=== PATIENT | male | born 1990 | race Caucasian/White ===

== ENCOUNTER 2020-06-01 19:40 | Emergency (ER) | payer MEDICAID ==
[~2020-06-01] VITALS: Ht 185.4 cm; Wt 131.8 kg
[2020-06-01] MEDS ORDERED: KETOROLAC 60MG/2ML VIAL IM STA (21:01)
[2020-06-01] MEDS ORDERED: PENICILLIN G BENZATHINE 1,200,000 UNITS/2ML SYR IM ONE (21:15)
[2020-06-01] MEDS ORDERED: DEXAMETHASONE 10 MG/ML VIAL IM ONE (21:15)
[2020-06-01] MEDS ORDERED: KETOROLAC 30MG/ML VIAL IV STA (21:35)
[2020-06-01] MEDS ORDERED: AMPICILLIN SOD/SULBACTAM NA 1.5 G in SODIUM CHLORIDE 0.9% 50 ML IV SCH (21:45)
[2020-06-01] MEDS ORDERED: DEXAMETHASONE 10 MG/ML VIAL IV ONE (21:45)
[2020-06-02 01:17] VITALS: BP 124/70
== END 2020-06-02 01:17 | disposition home or self-care (01) ==
LOC: ER 19:40
DX: J36 Peritonsillar abscess (principal)
CPT/HCPCS: 96365; 96372; 99284; J0295; J0561; J1100; J1885

== ENCOUNTER 2020-07-10 13:14 | Emergency (ER) | payer BC, MEDICAID ==
[~2020-07-10] VITALS: Ht 185.4 cm; Wt 132.0 kg
[2020-07-10 13:39] VITALS: BP 136/69
[2020-07-10] MEDS ORDERED: LOPERAMIDE HCL 2MG CAPSULE PO ONE (14:00)
[2020-07-10 15:07] LABS: BASOPHILS % 0.3 % (0.0-2.0); HEMATOCRIT. 45.6 % (42.0-52.0); HEMOGLOBIN. 15.9 g/dL (14.0-18.0); LYMPHOCYTES % 34.5 % (20.0-50.0); MEAN CORPUSCULAR HEMOGLOBIN 29.9 pg (28.0-32.0); MEAN CORPUSCULAR VOLUME 85.7 fL (80.0-94.0); MEAN PLATELET VOLUME 9.2 fl (7.4-10.4); MONOCYTES % 6.6 % (2.0-8.0); NEUTROPHILS % 56.6 % (40.0-76.0); PLATELET 203 x1000/uL (130-400); RED BLOOD CELL COUNT 5.32 mill/uL (4.7-6.1); RED CELL DISTRIBUTION WIDTH 13.6 % (11.6-14.6)
[2020-07-10 15:12] LABS: CHLORIDE 105 mEq/L (98-107)
== END 2020-07-10 15:53 | disposition home or self-care (01) ==
LOC: ER 13:40
DX: R10.84 Generalized abdominal pain (principal); R19.7 Diarrhea, unspecified
CPT/HCPCS: 36415; 80053; 85025; 93005; 99284

== ENCOUNTER 2020-09-30 08:46 | Emergency (ER) | payer BC, MEDICAID ==
[~2020-09-30] VITALS: Ht 182.9 cm; Wt 127.0 kg
[2020-09-30 08:50] VITALS: BP 145/90
[2020-09-30] MEDS ORDERED: MAGNESIUM/ALUMINUM HYDROXIDE/SIMETHICONE 30ML UDC PO STA (09:02)
[2020-09-30] MEDS ORDERED: VISCOUS LIDOCAINE 2% 15 ML UDC PO STA (09:02)
== END 2020-09-30 12:36 | disposition left against medical advice (07) ==
LOC: ER 09:10
DX: K29.70 Gastritis, unspecified, without bleeding (principal)
CPT/HCPCS: 93005; 99283

== ENCOUNTER 2025-03-29 22:20 | Emergency (ER) | payer BC, MEDICAID ==
[~2025-03-29] VITALS: Ht 185.4 cm; Wt 145.0 kg
[2025-03-29 22:29] VITALS: TEMP 36.8; O2SAT 100
[2025-03-29] MEDS: FAMOTIDINE 20MG TABLET PO ONE (23:32)
[2025-03-29 23:47] LABS: BASOPHILS % 0.4 % (0.0-2.0); EOSINOPHILS % 0.5 % (0.0-5.0); HEMATOCRIT. 47.7 % (42.0-52.0); HEMOGLOBIN. 16.6 g/dL (14.0-18.0); LYMPHOCYTES % 18.2 % (20.0-50.0); MEAN CORPUSCULAR HGB CONC 34.8 g/dL (31.0-37.0); MEAN CORPUSCULAR VOLUME 83.5 fL (80.0-94.0); MEAN PLATELET VOLUME 8.9 fl (7.4-10.4); MONOCYTES % 7.4 % (2.0-8.0); NEUTROPHILS % 73.5 % (40.0-76.0); PLATELET 236 x1000/uL (130-400); RED BLOOD CELL COUNT 5.71 mill/uL (4.7-6.1); WHITE BLOOD COUNT 10.4 x1000/uL (4.5-11.0)
[2025-03-30 00:03] LABS: CHLORIDE 101 mEq/L (98-107); POTASSIUM 3.6 mEq/L (3.5-5.1); SODIUM 140 mEq/L (136-145)
[2025-03-30 00:04] LABS: CARBON DIOXIDE 28 mEq/L (21-32)
[2025-03-30 00:05] LABS: CALCIUM 10.1 mg/dL (8.7-10.4)
[2025-03-30 00:09] LABS: CREATININE 0.9 mg/dL (0.6-1.3); GLUCOSE 129 mg/dL (70-105)
[2025-03-30 00:10] LABS: UREA NITROGEN BLOOD 8 mg/dL (9-23)
[2025-03-30 00:11] LABS: ALANINE AMINOTRANSFERASE 23 IU/L (10-49); ALBUMIN 4.7 g/dL (3.2-4.8); ASPARTATE AMINOTRANSFERASE 15 IU/L (<34)
[2025-03-30 00:12] LABS: BILIRUBIN TOTAL 0.7 mg/dL (0.1-1.0); PROTEIN TOTAL 7.8 g/dL (6.0-8.3)
[2025-03-30] MEDS ORDERED: FAMO-135 MT (00:20)
[2025-03-30 00:41] VITALS: BP 148/92; PULSE 90; RESP 18; O2SAT 97
== END 2025-03-30 00:42 | disposition home or self-care (01) ==
LOC: ER 22:20
DX: K80.70 Calculus of gallbladder and bile duct without cholecystitis without obstruction (principal)
CPT/HCPCS: 36415; 76705; 80053; 85025; 99284

== ENCOUNTER 2025-06-17 19:52 | Emergency (ER) | payer SELFPAY ==
[~2025-06-17] VITALS: Ht 185.4 cm; Wt 139.2 kg
[~2025-06-17 19:52] MED LIST: FAMO-135 MT
[2025-06-17 20:00] VITALS: O2SAT 100
[2025-06-17 21:07] LABS: BASOPHILS % 0.2 % (0.0-2.0); EOSINOPHILS % 0.2 % (0.0-5.0); HEMATOCRIT. 45.3 % (42.0-52.0); HEMOGLOBIN. 14.9 g/dL (14.0-18.0); LYMPHOCYTES % 18.9 % (20.0-50.0); MEAN PLATELET VOLUME 8.8 fl (7.4-10.4); MONOCYTES % 8.8 % (2.0-8.0); NEUTROPHILS % 71.9 % (40.0-76.0); PLATELET 396 x1000/uL (130-400); RED BLOOD CELL COUNT 5.42 mill/uL (4.7-6.1); RED CELL DISTRIBUTION WIDTH 13.2 % (11.6-14.6)
[2025-06-17 21:21] LABS: CREATININE 1.0 mg/dL (0.6-1.3); UREA NITROGEN BLOOD 6 mg/dL (9-23)
[2025-06-17 21:38] LABS: ETHANOL BLOOD < 10 mg/dL (<10)
[2025-06-17 21:39] LABS: ASPARTATE AMINOTRANSFERASE 20 IU/L (<34); BILIRUBIN DIRECT 0.3 mg/dL (<=3.0); BILIRUBIN TOTAL 0.7 mg/dL (0.1-1.0); PROTEIN TOTAL 7.6 g/dL (6.0-8.3)
[2025-06-17 22:38] LABS: HEPATITIS C AB NON REACTIVE (Neg) (Negative)
[2025-06-17] MEDS: KETOROLAC 30MG/ML VIAL IV ONE (23:05)
[2025-06-17] MEDS: ONDANSETRON HCL 4MG/2ML INJ IV ONE (23:05)
[2025-06-17] MEDS: FAMOTIDINE 20MG/2ML VIAL IV ONE (23:06)
[2025-06-17] MEDS: SODIUM CHLORIDE 0.9% 1,000 ML IV ONE (23:07)
[2025-06-18] MEDS: IOHEXOL-300 100 ML BOTTLE ONE (02:16)
[2025-06-18] MEDS ORDERED: IBUP-2030 MT (03:38)
[2025-06-18] MEDS ORDERED: TRAM50TA3 MT (03:38)
[2025-06-18] MEDS ORDERED: AMOX1TAB16 MT (03:38)
[2025-06-18] MEDS ORDERED: ONDA-239 PO (03:38)
[2025-06-18] MEDS: MORPHINE SULFATE 4 MG/ML INJ (FOR IV/IM USE) IV NR (04:01)
[2025-06-18] MEDS: KETOROLAC 30MG/ML VIAL IV NR (04:01)
[2025-06-18] MEDS: AMOXICILLIN/POTASSIUM CLAVULANATE 875/125MG TAB PO NR (04:01)
[2025-06-18 04:10] VITALS: BP 118/67; PULSE 92; RESP 16; TEMP 37.1; O2SAT 100
== END 2025-06-18 04:10 | disposition home or self-care (01) ==
LOC: ER 19:52
DX: K80.10 Calculus of gallbladder with chronic cholecystitis without obstruction (principal); E66.01 Morbid (severe) obesity due to excess calories
CPT/HCPCS: 80076; 80048; 80320; 83690; 85025; 86706; 36415; 86705; 76705; 93005; 96361; 96374; 96375; 99285; 74177; 96376; J1308; J1885 ×2; J2405; J7030; Q9967; J2270; G0480

== ENCOUNTER 2025-06-18 14:35 | Inpatient (IN) | payer SELFPAY ==
[~2025-06-18] VITALS: Ht 185.4 cm; Wt 132.0 kg
[~2025-06-18 14:35] MED LIST changes: +AMOX1TAB16 MT; +IBUP-2030 MT; +ONDA-239 PO; +TRAM50TA3 MT
[2025-06-18 14:43] VITALS: O2SAT 98
[2025-06-18 15:34] LABS: BASOPHILS % 0.6 % (0.0-2.0); EOSINOPHILS % 0.3 % (0.0-5.0); HEMATOCRIT. 43.1 % (42.0-52.0); HEMOGLOBIN. 14.6 g/dL (14.0-18.0); LYMPHOCYTES % 13.2 % (20.0-50.0); MEAN PLATELET VOLUME 8.5 fl (7.4-10.4); MONOCYTES % 7.7 % (2.0-8.0); NEUTROPHILS % 78.2 % (40.0-76.0); PLATELET 362 x1000/uL (130-400); RED BLOOD CELL COUNT 5.19 mill/uL (4.7-6.1); RED CELL DISTRIBUTION WIDTH 13.2 % (11.6-14.6)
[2025-06-18 15:47] LABS: CREATININE 1.0 mg/dL (0.6-1.3)
[2025-06-18 15:48] LABS: UREA NITROGEN BLOOD 11 mg/dL (9-23)
[2025-06-18 15:49] LABS: ASPARTATE AMINOTRANSFERASE 21 IU/L (<34)
[2025-06-18 15:50] LABS: BILIRUBIN DIRECT 0.3 mg/dL (<=3.0); BILIRUBIN TOTAL 0.7 mg/dL (0.1-1.0); PROTEIN TOTAL 8.3 g/dL (6.0-8.3)
[2025-06-18 15:56] LABS: INR 1.2
[2025-06-18] MEDS: LEVOFLOXACIN 750MG PREMIX 150 ML IV NR (18:13)
[2025-06-18 20:00] VITALS: BP 125/71; PULSE 99; RESP 16; TEMP 37.2; O2SAT 95
[2025-06-18] MEDS: METRONIDAZOLE 500 MG PREMIX 100 ML IV NR (20:04)
[2025-06-18 20:21] VITALS: BP 125/71; PULSE 99; RESP 16; TEMP 37.1964
[2025-06-18] MEDS ORDERED: MAGNESIUM/ALUMINUM HYDROXIDE/SIMETHICONE 30ML UDC PO PRN (20:45)
[2025-06-18] MEDS ORDERED: GUAIFENESIN 200MG/10ML SUGAR FREE UDC PO PRN (20:45)
[2025-06-18] MEDS ORDERED: CLONIDINE 0.1MG TABLET PO PRN (20:45)
[2025-06-18] MEDS ORDERED: MORPHINE SULFATE 4 MG/ML INJ (FOR IV/IM USE) IV PRN (20:45)
[2025-06-18] MEDS ORDERED: ONDANSETRON HCL 4MG/2ML INJ IV PRN (20:45)
[2025-06-18] MEDS ORDERED: SODIUM CHLORIDE 0.9% IV NR (20:45)
[2025-06-18] MEDS ORDERED: DOCUSATE SODIUM 100MG CAPSULE PO PRN (20:45)
[2025-06-18] MEDS ORDERED: IPRATROPIUM/ALBUTEROL 0.5-3(2.5)MG/3ML NEB HHN PRN (20:45)
[2025-06-18] MEDS ORDERED: NALOXONE HCL 0.4MG/ML VIAL IV PRN (21:00)
[2025-06-18] MEDS: PIPERACILLIN/TAZO 3.375G/50ML 50 ML IV SCH (22:20)
[2025-06-18] MEDS: KETOROLAC 15MG/ML VIAL IV PRN (22:21)
[2025-06-19] VITALS: BP 115/74; PULSE 82; RESP 18; TEMP 36.6; O2SAT 98
[2025-06-19 04:00] VITALS: BP 122/75; PULSE 92; RESP 18; TEMP 36.6; O2SAT 95
[2025-06-19 06:56] LABS: CLARITY URINE CLEAR (CLEAR); COLOR URINE DARK YELLOW (YELLOW); GLUCOSE URINE NEGATIVE (NEGATIVE); KETONES URINE 1+ (NEGATIVE); LEUKOCYTE ESTERASE URINE NEGATIVE (NEGATIVE); NITRITE URINE NEGATIVE (NEGATIVE); OCCULT BLOOD URINE NEGATIVE (NEGATIVE); PH URINE 5.5 (4.5-8.0); PROTEIN URINE 1+ (NEGATIVE); SPECIFIC GRAVITY URINE 1.021 (1.005-1.030); UROBILINOGEN URINE 1.0 E.U./dL (0.2-1.0)
[2025-06-19 07:18] LABS: SQUAMOUS EPITHELIAL CELL URINE FEW /lpf (RARE/1+)
[2025-06-19 07:19] LABS: RBC URINE NONE SEEN /hpf (0-2)
[2025-06-19 07:20] LABS: BACTERIA URINE NONE SEEN; WBC URINE 0-2 /hpf (0-2)
[2025-06-19 07:22] LABS: *AMPHETAMINES SCREEN URINE NEGATIVE (NEGATIVE); *BARBITURATES SCREEN URINE NEGATIVE (NEGATIVE); *BENZODIAZEPINES SCREEN URINE NEGATIVE (NEGATIVE); *COCAINE SCREEN URINE NEGATIVE (NEGATIVE)
[2025-06-19 07:23] LABS: CANNABINOID URINE SCREEN NEGATIVE (NEGATIVE); ECSTASY MDMA SCREEN URINE NEGATIVE (NEGATIVE); METHADONE URINE SCREEN NEGATIVE (NEGATIVE); OPIATES URINE SCREEN PRESUMPTIVE POSITIVE (NEGATIVE); PHENCYCLIDINE URINE SCREEN NEGATIVE (NEGATIVE)
[2025-06-19 08:00] VITALS: BP 124/74; PULSE 89; RESP 18; TEMP 36.6; O2SAT 98
[2025-06-19 08:00] LABS: BASOPHILS % 0.3 % (0.0-2.0); EOSINOPHILS % 0.2 % (0.0-5.0); HEMATOCRIT. 39.9 % (42.0-52.0); HEMOGLOBIN. 13.4 g/dL (14.0-18.0); LYMPHOCYTES % 13.1 % (20.0-50.0); MEAN PLATELET VOLUME 8.4 fl (7.4-10.4); MONOCYTES % 9.8 % (2.0-8.0); NEUTROPHILS % 76.6 % (40.0-76.0); PLATELET 327 x1000/uL (130-400); RED BLOOD CELL COUNT 4.80 mill/uL (4.7-6.1); RED CELL DISTRIBUTION WIDTH 13.2 % (11.6-14.6)
[2025-06-19 08:19] LABS: CREATININE 1.0 mg/dL (0.6-1.3)
[2025-06-19 08:20] LABS: TRIGLYCERIDE 78 mg/dL (0-150); UREA NITROGEN BLOOD 10 mg/dL (9-23)
[2025-06-19 08:21] LABS: LDL CHOLESTEROL 67 mg/dL (5-100)
[2025-06-19] MEDS: PANTOPRAZOLE SODIUM 40 MG/VIAL IV SCH (08:44)
[2025-06-19] MEDS: DEXT 5%/0.45% NACL 1000ML 1,000 ML IV SCH (08:52)
[2025-06-19 12:00] VITALS: BP 113/64; PULSE 86; RESP 18; TEMP 36.6; O2SAT 98
[2025-06-19 16:00] VITALS: BP 123/76; PULSE 96; RESP 19; TEMP 36.6; O2SAT 99
[2025-06-19 20:00] VITALS: BP 131/68; PULSE 98; RESP 19; TEMP 37.5; O2SAT 96
[2025-06-20] VITALS (25 sets, daily range): BP systolic 108–138; BP diastolic 64–84; PULSE 81–99; RESP 18–25; TEMP 36.2–37.1; O2SAT 95–99
[2025-06-20 11:45] LABS: HEMATOCRIT. 41.5 % (42.0-52.0); HEMOGLOBIN. 13.8 g/dL (14.0-18.0); MEAN PLATELET VOLUME 8.8 fl (7.4-10.4); PLATELET 355 x1000/uL (130-400); RED BLOOD CELL COUNT 5.01 mill/uL (4.7-6.1); RED CELL DISTRIBUTION WIDTH 13.2 % (11.6-14.6)
[2025-06-20 12:03] LABS: CREATININE 0.8 mg/dL (0.6-1.3)
[2025-06-20 12:04] LABS: UREA NITROGEN BLOOD 7 mg/dL (9-23)
[2025-06-20 12:06] LABS: PHOSPHORUS 3.6 mg/dL (2.5-4.9)
[2025-06-20] MEDS ORDERED: LIDOCAINE HCL 1% 20ML VIAL ONE (12:39)
[2025-06-20] MEDS ORDERED: FENTANYL CITRATE/PF 50MCG/ML 2ML VIAL ONE ×2 (12:40→14:05)
[2025-06-20 12:41] LABS: HEPATITIS A AB IGM NEGATIVE (Negative)
[2025-06-20 12:42] LABS: HEPATITIS B CORE AB IGM NEGATIVE (Negative); HEPATITIS C AB NON REACTIVE (Neg) (Negative)
[2025-06-20 12:48] LABS: BAND% 4.0 % (1.0-6.0); LYMPHOCYTES % MANUAL 15.0 % (20.0-50.0); MONOCYTES % MANUAL 8.0 % (2.0-8.0); NEUTROPHILS % MANUAL 73.0 % (45.0-75.0)
[2025-06-20 12:49] LABS: PLATELET ESTIMATE NORMAL
[2025-06-20] MEDS: FENTANYL CITRATE/PF 50MCG/ML 2ML VIAL IV SCH (13:00)
[2025-06-20] MEDS ORDERED: LIDOCAINE HCL 1% 10 MG/ML 10ML VIAL ONE (13:37)
[2025-06-20] MEDS: HYDROCODONE/ACETAMINOPHEN 5/325MG TABLET PO PRN (20:30)
[2025-06-20] MEDS ORDERED: METRONIDAZOLE 500MG TABLET PO SCH (21:00)
[2025-06-21 04:00] VITALS: BP 107/71; PULSE 75; RESP 19; TEMP 37.2; O2SAT 99
[2025-06-21 08:00] VITALS: BP 113/73; PULSE 74; RESP 16; TEMP 36.4; O2SAT 98
[2025-06-21 12:00] VITALS: BP 101/67; PULSE 80; RESP 17; TEMP 36.4; O2SAT 98
[2025-06-21 12:01] LABS: BASOPHILS % 0.2 % (0.0-2.0); EOSINOPHILS % 1.4 % (0.0-5.0); HEMATOCRIT. 40.5 % (42.0-52.0); HEMOGLOBIN. 13.4 g/dL (14.0-18.0); LYMPHOCYTES % 23.1 % (20.0-50.0); MEAN PLATELET VOLUME 8.8 fl (7.4-10.4); MONOCYTES % 6.3 % (2.0-8.0); NEUTROPHILS % 69.0 % (40.0-76.0); PLATELET 364 x1000/uL (130-400); RED BLOOD CELL COUNT 4.84 mill/uL (4.7-6.1); RED CELL DISTRIBUTION WIDTH 13.4 % (11.6-14.6)
[2025-06-21 12:21] LABS: CREATININE 0.6 mg/dL (0.6-1.3); UREA NITROGEN BLOOD 7 mg/dL (9-23)
[2025-06-21] MEDS ORDERED: AMOX1TAB16 MT (13:31)
[2025-06-21] MEDS ORDERED: IBUP-2028 MT (13:31)
[2025-06-21] MEDS ORDERED: PANT40SU PO (13:31)
[2025-06-21] MEDS: POTASSIUM CHLORIDE 20MEQ TABLET SR PO NR (15:09)
[2025-06-21 15:43] VITALS: BP 110/68; PULSE 72; TEMP 97
== END 2025-06-21 17:09 | disposition home or self-care (01) ==
LOC: ER 14:35 → 7EST 18:42 → EDBEDREQ 18:43 → EDBEDREQTM 18:43 → ENRESERV 19:42
PROVIDERS: ADMIT Hospitalist; ATTEND Hospitalist
PROC: 0F9440Z Drainage of Gallbladder with Drainage Device, Percutaneous Endoscopic Approach (ICD-10-PCS; principal; 2025-06-20)
PROC: 0F904ZZ Drainage of Liver, Percutaneous Endoscopic Approach (ICD-10-PCS; 2025-06-20)
DX: K80.00 Calculus of gallbladder with acute cholecystitis without obstruction (principal); K75.0 Abscess of liver; E66.9 Obesity, unspecified; F17.210 Nicotine dependence, cigarettes, uncomplicated; R74.8 Abnormal levels of other serum enzymes; D72.810 Lymphocytopenia; Z68.39 Body mass index [BMI] 39.0-39.9, adult; Z55.6 Problems related to health literacy; Z91.199 Patient's noncompliance with other medical treatment and regimen due to unspecified reason
CPT/HCPCS: 36415; 47490; 71045; 77012; 78227; 80048; 80061; 80076; 80305; 81003; 82962; 83036; 83605; 83735; 84100; 84145; 84443; 85025; 86705; 86709; 86850; 86900; 87340; 93005; 96365; 99152; 99153; 99285; A4606; A9537; C1729; C1769; J1885; J1956; J2003; J2470; J2543; J3010; J3490; G0500

== ENCOUNTER 2025-07-05 17:26 | Emergency (ER) | payer SELFPAY ==
[~2025-07-05] VITALS: Ht 185.4 cm; Wt 133.0 kg
[~2025-07-05 17:26] MED LIST changes: +IBUP-2028 MT; +PANT40SU PO
[2025-07-05 17:33] VITALS: O2SAT 100
[2025-07-05 19:11] LABS: BASOPHILS % 0.3 % (0.0-2.0); EOSINOPHILS % 4.6 % (0.0-5.0); HEMATOCRIT. 41.5 % (42.0-52.0); HEMOGLOBIN. 14.1 g/dL (14.0-18.0); LYMPHOCYTES % 32.3 % (20.0-50.0); MEAN PLATELET VOLUME 9.2 fl (7.4-10.4); MONOCYTES % 5.6 % (2.0-8.0); NEUTROPHILS % 57.2 % (40.0-76.0); PLATELET 216 x1000/uL (130-400); RED BLOOD CELL COUNT 4.99 mill/uL (4.7-6.1); RED CELL DISTRIBUTION WIDTH 14.7 % (11.6-14.6)
[2025-07-05 19:21] LABS: INR 1.0
[2025-07-05 19:26] LABS: CREATININE 0.7 mg/dL (0.6-1.3); UREA NITROGEN BLOOD 14 mg/dL (9-23)
[2025-07-05 19:27] LABS: ASPARTATE AMINOTRANSFERASE 15 IU/L (<34)
[2025-07-05 19:28] LABS: BILIRUBIN DIRECT < 0.1 mg/dL (<=3.0); BILIRUBIN TOTAL 0.2 mg/dL (0.1-1.0); PROTEIN TOTAL 7.3 g/dL (6.0-8.3)
[2025-07-05 21:19] VITALS: BP 146/76; PULSE 70; RESP 18; TEMP 37.2; O2SAT 100
== END 2025-07-05 21:26 | disposition home or self-care (01) ==
LOC: ER 17:26 → CMPBEDREQ 07-06 07:21
DX: R10.9 Unspecified abdominal pain (principal); Z79.899 Other long term (current) drug therapy
CPT/HCPCS: 36415; 76705; 80048; 80076; 83735; 85025; 86850; 86900; 99284

== ENCOUNTER 2025-07-26 23:14 | Emergency (ER) | payer SELFPAY ==
[~2025-07-26] VITALS: Ht 182.9 cm; Wt 136.0 kg
[2025-07-27 00:21] VITALS: TEMP 36.9; O2SAT 99
[2025-07-27 03:06] VITALS: BP 123/73; PULSE 76; RESP 20; O2SAT 100
== END 2025-07-27 03:08 | disposition home or self-care (01) ==
LOC: ER 23:14
DX: K81.0 Acute cholecystitis (principal); Z79.899 Other long term (current) drug therapy
CPT/HCPCS: 74176; 76705; 99284